=== PATIENT | female | born 1955 | race African-American/Black ===

== ENCOUNTER 2023-08-27 18:57 | Emergency (ER) | payer OTHER ==
[2023-08-27 19:19] VITALS: TEMP 100.4; BMI 27.6
[2023-08-27] MEDS ORDERED: ACETAMINOPHEN INJECTION 100 ML IVPB ONE (20:11)
[2023-08-27] MEDS: SODIUM CHLORIDE 0.9% 500 ML INFUS.BAG IV ONE (21:08)
[2023-08-27] MEDS: ACETAMINOPHEN 1000 MG/100 ML BAG IVPB ONE (21:08)
[2023-08-27 21:09] LABS: BASO % 0.7 % (0-2.0); EOS % 1.2 % (0-4.5); HEMATOCRIT 45.8 % (32.4-45.2); HEMOGLOBIN 15.1 GM/dL (10.7-15.3); MCH 30.2 pg (25.7-33.7); MEAN CELL VOLUME 91.4 fl (80-96); MEAN PLT VOLUME 8.7 fl (7.5-11.1); NEUT % 80.1 % (42.8-82.8); PLATELET COUNT 270 10^3/uL (134-434); RBC 5.01 M/mm3 (3.60-5.2); WHITE BLOOD COUNT 6.8 K/mm3 (4.0-10.0)
[2023-08-27 21:12] LABS: EPI CELLS 13 /uL (0-25.1); HYALINE CASTS 0 /uL (0-3.1); PH,URINE 7.5 (5.0-8.0); URINE APPEARANCE CLEAR; URINE BACTERIA 207 /uL (0-1359); URINE BILIRUBIN NEGATIVE (NEGATIVE); URINE COLOR YELLOW; URINE GLUCOSE (UA) NEGATIVE (NEGATIVE); URINE KETONE NEGATIVE (NEGATIVE); URINE LEUK ESTERASE TRACE (NEGATIVE); URINE NITRITE NEGATIVE (NEGATIVE); URINE PROTEIN NEGATIVE (NEGATIVE); URINE RBC 6 /uL (0-23.9); URINE UROBILINOGEN 0.2 mg/dL (0.2-1.0); URINE WBC 15 /uL (0-25.8)
[2023-08-27 21:16] LABS: INR 0.93 (0.83-1.09); PROTHROMBIN TIME (PATIENT) 10.8 SEC (9.7-13.0)
[2023-08-27 21:19] LABS: ACTIVATED PTT 31.8 SECONDS (25.2-36.5)
[2023-08-27 21:30] LABS: POTASSIUM 3.8 mmol/L (3.5-5.1)
[2023-08-27 21:32] LABS: ALBUMIN 4.1 g/dl (3.4-5.0); CALCIUM 9.8 mg/dL (8.5-10.1)
[2023-08-27 21:33] LABS: BLOOD UREA NITROGEN 10.7 mg/dL (7-18)
[2023-08-27 21:36] LABS: CREATININE 1.1 mg/dL (0.55-1.3)
[2023-08-27 21:37] LABS: BILIRUBIN,TOTAL 0.8 mg/dL (0.2-1)
[2023-08-27] MEDS ORDERED: IBUPROFEN 600 MG TABLET (FP) PO ONE (22:43)
[2023-08-27] MEDS: IBUPROFEN 600 MG TABLET (FP) PO ONE (22:52)
[2023-08-27 23:44] VITALS: BP 138/69; PULSE 62; RESP 18
== END 2023-08-28 00:25 | disposition home or self-care (01) ==
LOC: JER 18:57
PROC: 3E033NZ Introduction of Analgesics, Hypnotics, Sedatives into Peripheral Vein, Percutaneous Approach (ICD-10-PCS; principal; 2023-08-27)
DX: R10.84 Generalized abdominal pain (principal); R07.89 Other chest pain; R05.9 Cough, unspecified; M54.9 Dorsalgia, unspecified; M25.511 Pain in right shoulder; M25.512 Pain in left shoulder; U07.1 COVID-19
CPT/HCPCS: 0241U-QW; 36415; 71046-TC-FY; 72100-TC-FY; 80053; 81003; 83605; 84484; 85025; 85610; 85730; 86850; 86900; 86901; 87040; 87086; 93005; 93010; 99285-25; J0131